=== PATIENT | male | born 1955 | race Caucasian/White ===

== ENCOUNTER → 2018-01-01 | Outpatient (CLI) | payer MEDICARE, MEDICAID ==
[~2018-01-01] MED LIST: ALBU2TAB38 PO; ALBU8.5H2 IH; ASPI-892 PO; CETI10TA57 PO; CYCL10TA9 PO; DOXE25CA2 PO; GABA300C PO; GLIM4TAB PO; HYDR-3729 PO; LIRA0.6P SQ; LVT.05T PO; METF-380 PO; OMEP20CA6 PO; PIOG45TA PO; SIMV40TA2 PO; ZOLP10TA5 PO
== END ==
LOC: CARD 13:42
PROVIDERS: ATTEND Physician Assistant
DX: I25.10 Atherosclerotic heart disease of native coronary artery without angina pectoris (principal); R07.9 Chest pain, unspecified; E11.9 Type 2 diabetes mellitus without complications; E78.5 Hyperlipidemia, unspecified
CPT/HCPCS: 93306

== ENCOUNTER 2020-01-11 13:28 | Emergency (ER) | payer MEDICARE, MEDICAID ==
[~2020-01-11] VITALS: Ht 187 cm; Wt 134.0 kg
[2020-01-11 13:40] VITALS: BP 153/102
--- NOTE | 2020-01-11 14:01 | ED General ---
General Chief Complaint: Cardiac/General Problems Stated Complaint: ELEV BP Nursing Triage Note: ARRIVED VIA AMB TO ROOM 06 WITH COMPLAINTS OF HIGH BP X2 WEEKS. DENIES ANY SYMPTOMS INCLUDING CP ET JUST WANTS TO KNOW IF WE THINK IT IS HIGH ALSO. Nursing Sepsis Screen: No Definite Risk History of Present Illness Date Seen by Provider: Jan 11, 2020 Time Seen by Provider: 13:45 Initial Comments 64 year old male presents for hypertension. He checks his b/p multiple times a day at home and it has been labile. He was recently instructed to increase his losarten to 150 mg, but he has continued to take 100 mg. He denies headache, vision changes, weakness, nausea or vomiting. Timing/Duration: Intermittent Associated Systoms: Denies Symptoms Allergies and Home Medications Allergies Uncoded Allergies: TAPE (Adverse Reaction, Mild, 08/12/10) Home Medications Albuterol 8.5 Gm Hfa.aer.ad, 2 PUFF IH QID PRN for SHORTNESS OF BREATH, (Reported) Aspirin 81 Mg Tabec, 81 MG PO DAILY, (Reported) Gabapentin 300 Mg Capsule, 300 MG PO BID, (Reported) Glimepiride 4 Mg Tablet, 4 MG PO DAILY, (Reported) Hydrocodone/Acetaminophen 1 Each Tablet, 1 EACH PO Q4H PRN for PAIN Prescribed by: MARCOS MCMILLAN on 10/09/14 0909 Levothyroxine Sodium 50 Mcg Tablet, 50 MCG PO DAILY, (Reported) Liraglutide 0.6 Mg/0.1 Ml Pen.injctr, 1.8 MG SQ DAILY, (Reported) Metformin Hcl 1,000 Mg Tablet, 1,000 MG PO BID WITH MEALS, (Reported) Omeprazole 20 Mg Capsule.dr, 20 MG PO DAILY, (Reported) Simvastatin 40 Mg Tablet, 40 MG PO HS, (Reported) Zolpidem Tartrate 10 Mg Tablet, 10 MG PO HS, (Reported) Patient Home Medication List Home Medication List Reviewed: Yes Review of Systems Review of Systems Constitutional: no symptoms reported, see HPI EENTM: see HPI, no symptoms reported Cardiovascular: no symptoms reported, see HPI; No chest pain Gastrointestinal: no symptoms reported, see HPI Musculoskeletal: no symptoms reported, see HPI Psychiatric/Neurological: No Symptoms Reported, See HPI All Other Systems Reviewed Negative Unless Noted: Yes Past Eggohtu-Whqzwz-Wysnjm Hx Past Med/Social Hx: Reviewed Nursing Past Med/Soc Hx Patient Social History Alcohol Use: Denies Use Recreational Drug Use: No Smoking Status: Never a Smoker Recent Foreign Travel: No Contact w/Someone Who Travel: No Recent Infectious Disease Expo: No Immunizations Up To Date Date of Pneumonia Vaccine: Aug 20, 2011 Past Medical History Surgeries: Yes Appendectomy, Gallbladder, Orthopedic Respiratory: Yes Sleep Apnea Cardiac: No Hypertension Neurological: No Genitourinary: No Gastrointestinal: Yes Gastroesophageal Reflux, Gall Bladder Disease Musculoskeletal: Yes Arthritis Endocrine: Yes Hypothyroidsim, Diabetes, Non-Insulin dep Cancer: No Psychosocial: Yes Anxiety Integumentary: No Blood Disorders: No Physical Exam Vital Signs Vital Signs - First Documented 01/11/20 13:40 Temp 36.5 Pulse 93 Resp 16 B/P (MAP) 153/102 (119) Pulse Ox 96 O2 Delivery Room Air Capillary Refill : Less Than 3 Seconds Height, Weight, BMI Height: 6'2.00" Weight: 284lbs. oz. 128.183992tv; 38.00 BMI Method:Stated General Appearance: No Apparent Distress Eyes: Bilateral Eye Normal Inspection, Bilateral Eye PERRL, Bilateral Eye EOMI HEENT: PERRL/EOMI, TMs Normal, Normal ENT Inspection, Pharynx Normal Neck: Full Range of Motion, Normal Inspection, Non Tender, Supple Respiratory: Chest Non Tender, Lungs Clear, Normal Breath Sounds Cardiovascular: Regular Rate, Rhythm, No Edema, No Murmur, Normal Peripheral Pulses Gastrointestinal: Normal Bowel Sounds, Non Tender, Soft Extremity: Normal Capillary Refill, Normal Inspection, Normal Range of Motion, Non Tender, No Calf Tenderness, No Pedal Edema Neurologic/Psychiatric: Alert, Oriented x3, No Motor/Sensory Deficits, Normal Mood/Affect Skin: Normal Color, Warm/Dry Progress/Results/Core Measures Suspected Sepsis Recent Fever Within 48 Hours: No Infection Criteria Present: None New/Unexplained Altered Menta: No Sepsis Screen: No Definite Risk SIRS Temperature: Pulse: 93 Respiratory Rate: 16 Blood Pressure 153 /102 Mean: 119 Results/Orders Vital Signs/I&O 01/11/20 13:40 Temp 36.5 Pulse 93 Resp 16 B/P (MAP) 153/102 (119) Pulse Ox 96 O2 Delivery Room Air Capillary Refill : Less Than 3 Seconds Blood Pressure Mean: 119 Progress Note : Time: 13:45 Progress Note patient seen and evaluated, B/P 150/102. 1330 B/P 120/98. Discussed with patient, recommended checking his b/p twice daily. It would be ok to take the Losarten 150 mg. Discharge instructions and return precautions reviewed. Departure Impression Primary Impression: Hypertension Qualified Codes: I10 - Essential (primary) hypertension Disposition: HOME, SELF-CARE Condition: Improved Departure-Patient Inst. Decision time for Depature: 13:45 Referrals: LUIS DANIEL WILEY MD (PCP/Family) Primary Care Physician Patient Instructions: High Blood Pressure (DC) Add. Discharge Instructions: Continue to take your blood pressure medicine, check your blood pressure twice daily and document it. Take Losartin 150 mg once daily. Follow up with your primary care provider. Return to the emergency dept for new, urgent health care providers. All discharge instructions reviewed with patient and/or family. Voiced understanding. STEPH MCEKON Jan 11, 2020 14:00
== END 2020-01-11 14:06 | disposition home or self-care (01) ==
LOC: EDUNIT# 13:28 → ER 13:29
DX: I10 Essential (primary) hypertension (principal); E03.9 Hypothyroidism, unspecified; G47.30 Sleep apnea, unspecified; E11.9 Type 2 diabetes mellitus without complications; Z79.84 Long term (current) use of oral hypoglycemic drugs; Z79.890 Hormone replacement therapy; Z91.048 Other nonmedicinal substance allergy status; Z79.899 Other long term (current) drug therapy
CPT/HCPCS: 99283

== ENCOUNTER 2020-08-13 05:50 | Outpatient (CLI) | payer MEDICARE, MEDICAID ==
[~2020-08-13] VITALS: Ht 188 cm; Wt 125.5 kg
[2020-08-16] MEDS ORDERED: CANA300T PO (14:46)
[2020-08-16] MEDS ORDERED: OMEP40CA27 PO (14:46)
[2020-08-16] MEDS ORDERED: CYCL10TA9 PO (14:46)
[2020-08-16] MEDS ORDERED: GLIM4TAB5 PO (14:46)
[2020-08-16] MEDS ORDERED: LIRA0.6P3 SQ (14:46)
[2020-08-16] MEDS ORDERED: TRAZ-227 PO (14:46)
[2020-08-16] MEDS ORDERED: GABA-490 PO (14:46)
[2020-08-16] MEDS ORDERED: METF-845 PO (14:46)
[2020-08-16] MEDS ORDERED: INSU100I29 SQ (14:46)
[2020-08-16] MEDS ORDERED: LOSA100T57 PO (14:46)
[2020-08-17] MEDS ORDERED: MUPI22OI2 TP (04:17)
== END 2020-08-16 14:50 | disposition home or self-care (01) ==
LOC: PREOP 05:50
PROVIDERS: ATTEND Specialist
DX: Z01.818 Encounter for other preprocedural examination (principal)

== ENCOUNTER 2020-08-17 03:57 | Emergency (ER) | payer MEDICARE, MEDICAID ==
[~2020-08-17 03:57] MED LIST changes: +CANA300T PO; +GABA-490 PO; +GLIM4TAB5 PO; +INSU100I29 SQ; +LIRA0.6P3 SQ; +LOSA100T57 PO; +METF-845 PO; +OMEP40CA6 PO; +TRAZ-227 PO
[2020-08-17 04:10] VITALS: BP 133/85
[2020-08-17] MEDS ORDERED: MUPI22OI2 TP ×2 (04:17)
--- NOTE | 2020-08-17 04:17 | ED GU-Male ---
General Stated Complaint: PENIS ISSUES Source: patient History of Present Illness Date Seen by Provider: Aug 17, 2020 Time Seen by Provider: 04:10 Initial Comments PT ARRIVES VIA POV FROM HOME PT STATES THAT AROUND 2129 TONIGHT, AFTER HAVING INTERCOURSE, HE WAS UNABLE TO REPLACE FORESKIN HAS BEEN ABLE TO URINATE SOME, BUT WITH DIFFICULTY PT STATES IT HAS HAPPENED BEFORE, BUT NOT THIS BAD AND NOT FOR THIS LONG PT IS UNCIRCUMCISED. Allergies and Home Medications Allergies Uncoded Allergies: TAPE (Adverse Reaction, Mild, 08/12/10) Home Medications Canagliflozin 300 Mg Tablet, 300 MG PO DAILY, (Reported) Cyclobenzaprine HCl 10 Mg Tablet, 10 MG PO BID, (Reported) Gabapentin 400 Mg Capsule, 400 MG PO TID, (Reported) Glimepiride 4 Mg Tablet, 4 MG PO BID, (Reported) Insulin Detemir 100 Unit/1 Ml Insuln.pen, 30 UNIT SQ BID, (Reported) Liraglutide 0.6 Mg/0.1 Ml Pen.injctr, 1.8 MG SQ DAILY, (Reported) Losartan Potassium 100 Mg Tablet, 100 MG PO DAILY, (Reported) Metformin HCl 500 Mg [id number], 1,000 MG PO BID, (Reported) Mupirocin 22 Gm Oint...g., 22 GM TP BID Prescribed by: ANANDA HUANG on 08/17/20 0417 Omeprazole 40 Mg Capsule.dr, 40 MG PO DAILY, (Reported) Trazodone HCl 100 Mg Tablet, 100 MG PO HS, (Reported) Patient Home Medication List Home Medication List Reviewed: Yes Review of Systems Review of Systems Constitutional: no symptoms reported Genitourinary: see HPI Past Jirreiy-Rrxhhg-Ddmkjo Hx Past Med/Social Hx: Reviewed and Corrections made Immunizations Up To Date Date of Pneumonia Vaccine: Aug 20, 2011 Past Medical History Surgeries: Yes Appendectomy, Gallbladder, Orthopedic Respiratory: Yes Sleep Apnea Cardiac: Yes Hypertension Neurological: No Genitourinary: No Gastrointestinal: Yes Gastroesophageal Reflux, Gall Bladder Disease Musculoskeletal: Yes Arthritis Endocrine: Yes Hypothyroidsim, Diabetes, Non-Insulin dep Cancer: No Psychosocial: Yes Anxiety Integumentary: No Blood Disorders: No Physical Exam Vital Signs Vital Signs - First Documented 08/17/20 04:10 Temp 36.4 Pulse 92 Resp 16 B/P (MAP) 133/85 (101) O2 Delivery Room Air Capillary Refill : Height, Weight, BMI Height: 6'2.00" Weight: 284lbs. oz. 128.145192yf; 38.00 BMI Method:Stated General Appearance: WD/WN, no apparent distress Male: other (RETRACTED FORESKIN, HEAD OF PENIS VERY ERYTHEMATOUS AND MILD TO MODERATE SWELLING. NO SIGNS OF NECROSIS OR CYANOSIS) Progress/Results/Core Measures Suspected Sepsis SIRS Temperature: Pulse: Respiratory Rate: Blood Pressure / Mean: Results/Orders Vital Signs/I&O 08/17/20 04:10 Temp 36.4 Pulse 92 Resp 16 B/P (MAP) 133/85 (101) O2 Delivery Room Air Capillary Refill : Progress Note : Progress Note EASILY REPLACED RETRACTED FORESKIN WITH IMMEDIATE RELIEF OF DISCOMFORT Departure Impression Primary Impression: Paraphimosis Disposition: 01 HOME, SELF-CARE Condition: Improved Departure-Patient Inst. Decision time for Depature: 04:15 Referrals: JOSE HAYES DO (PCP/Family) Primary Care Physician HANNA TURNER MD Patient Instructions: Care of the Uncircumcised Penis in Babies and Children Add. Discharge Instructions: APPLY ANTIBIOTIC OINTMENT TO HEAD OF PENIS TWICE A DAY TYLENOL AND MOTRIN NEEDED FOR PAIN FOLLOW UP WITH DR. TURNER, UROLOGIST, FOR FURTHER CARE Scripts Mupirocin (Mupirocin) 22 Gm Oint...g. 22 GM TP BID, #1 TUBE Prov: ANANDA HUANG DO 08/17/20 ANANDA HUANG DO Aug 17, 2020 04:17
== END 2020-08-17 04:20 | disposition home or self-care (01) ==
LOC: EDUNIT# 03:57 → ER 04:01
DX: N47.2 Paraphimosis (principal); I10 Essential (primary) hypertension; K21.9 Gastro-esophageal reflux disease without esophagitis; F41.9 Anxiety disorder, unspecified; E11.9 Type 2 diabetes mellitus without complications; Z79.899 Other long term (current) drug therapy; Z79.84 Long term (current) use of oral hypoglycemic drugs
CPT/HCPCS: 99282

== ENCOUNTER 2020-08-20 08:51 | Day surgery (SDC) | payer MEDICARE, MEDICAID ==
[~2020-08-20] VITALS: Ht 188 cm; Wt 125.5 kg
[~2020-08-20 08:51] MED LIST changes: +MUPI22OI2 TP
[2020-08-20] MEDS ORDERED: POVIDONE (BETADINE) OPHTH SOLN 5% 30 ML OP ONE (09:30)
[2020-08-20] MEDS ORDERED: LIDOCAINE PF 1% 2 ML VIAL IR PRN (09:30)
[2020-08-20] MEDS: TETRACAINE 0.5% OPHTH SOLN 4 ML BTL (SINGLE DOSE ONLY) OU PRN ×4 (09:30→09:47)
[2020-08-20] MEDS ORDERED: MOXIFLOXACIN OPHTH SOLN 5 MG/ML 0.3 ML SYRINGE OP ONE (09:30)
[2020-08-20] MEDS ORDERED: TIMOLOL MALEATE 0.5% 5 ML (TIMOPTIC) BTL OU PRN (09:30)
[2020-08-20] MEDS: TROPICAMIDE 1% OPH SOLN (MYDRIACYL) 15 ML BTL OP SCH ×3 (09:37→09:47)
[2020-08-20] MEDS: PHENYLEPHRINE 10% OPHTH (NEO-SYN) 5 ML BTL OU SCH ×3 (09:37→09:47)
[2020-08-20 09:39] VITALS: BP 115/70
[2020-08-20] MEDS ORDERED: MIDAZOLAM 2 MG/2 ML (VERSED) VIAL ONE (09:42)
--- NOTE | 2020-08-20 10:16 | Ophthalmologist Pre-Op Note ---
Pre-Operative Progress Note H&P Reviewed The H&P was reviewed, patient examined and no changes noted. Date H&P Reviewed: Aug 20, 2020 Time H&P Reviewed: 10:16 Pre-Op Dx Cataract, Left Eye ELBA SANTOS MD Aug 20, 2020 10:16
[2020-08-20] MEDS ORDERED: acetaZOLAMIDE ER 500 MG CAP (DIAMOX SEQUELS) PO ONE (10:30)
--- NOTE | 2020-08-20 10:47 | Ophthalmology Operative Report ---
Cataract removal/placement IOL PREOPERATIVE DIAGNOSIS: Cataract Left Eye POSTOPERATIVE DIAGNOSIS: Cataract Left Eye PROCEDURE: Cataract removal and placement of posterior chamber implant, left eye SURGEON: Nathanael Santos ANESTHESIA: Topical with sedation COMPLICATIONS: None ESTIMATED BLOOD LOSS: Minimal DESCRIPTION OF PROCEDURE: After proper informed consent was obtained, the patient, a 64 male, was taken to the Operating Room and the left eye was anesthetized with tetracaine. The left eye was then prepped and draped in the usual manner. A wire lid speculum was placed. A paracentesis was made at the left hand position. Preservative free lidocaine was injected into the anterior chamber followed by viscoelastic. A clear corneal incision was made in the temporal position. A capsulorrhexis was preformed and the central nuclear and cortical material were removed. The posterior capsule was polished and an Ej 4.0 [id number] was placed into the capsular bag. The residual viscoelastic was aspirated and balanced saline solution was injected into the anterior chamber. Moxifloxacin was injected into the anterior chamber. The wound was checked and found to be water tight. The patient tolerated the procedure well without complications. NATHANAEL SANTOS MD Aug 20, 2020 10:47
[2020-08-20 10:54] VITALS: BP 118/60
--- NOTE | 2020-08-20 15:59 | Anesthesia-General Post-Op ---
MAC Patient Condition Mental Status/LOC: Same as Preop Cardiovascular: Satisfactory Nausea/Vomiting: Absent Respiratory: Satisfactory Pain: Controlled Complications: Absent Post Op Complications Complications None Follow Up Care/Instructions Patient Instructions None needed. Anesthesiology Discharge Order Discharge Order Patient was seen after the procedure and he was doing well, no complaints, stable vital signs, no apparent adverse anesthesia problems. AC APODACA DO Aug 20, 2020 15:59
== END 2020-08-20 10:56 ==
LOC: SDC 08:51
PROVIDERS: ATTEND Specialist
DX: E11.36 Type 2 diabetes mellitus with diabetic cataract (principal); H25.12 Age-related nuclear cataract, left eye; I10 Essential (primary) hypertension; M19.90 Unspecified osteoarthritis, unspecified site; E78.5 Hyperlipidemia, unspecified; G47.00 Insomnia, unspecified; E78.00 Pure hypercholesterolemia, unspecified; F41.9 Anxiety disorder, unspecified; Z79.84 Long term (current) use of oral hypoglycemic drugs; Z79.899 Other long term (current) drug therapy; Z83.3 Family history of diabetes mellitus
CPT/HCPCS: 66984; 82947; V2632

== ENCOUNTER 2020-08-30 05:40 | Outpatient (CLI) | payer MEDICARE, MEDICAID ==
[~2020-08-30] VITALS: Ht 188 cm; Wt 125.5 kg
== END 2020-08-30 13:16 | disposition home or self-care (01) ==
LOC: PREOP 05:40
PROVIDERS: ATTEND Specialist
DX: Z01.818 Encounter for other preprocedural examination (principal)

== ENCOUNTER 2020-09-03 08:25 | Day surgery (SDC) | payer MEDICARE, MEDICAID ==
[~2020-09-03] VITALS: Ht 188 cm; Wt 125.5 kg
[2020-09-03] MEDS ORDERED: TIMOLOL MALEATE 0.5% 5 ML (TIMOPTIC) BTL OU PRN (08:30)
[2020-09-03] MEDS ORDERED: POVIDONE (BETADINE) OPHTH SOLN 5% 30 ML OP ONE (08:30)
[2020-09-03] MEDS ORDERED: MOXIFLOXACIN OPHTH SOLN 5 MG/ML 0.3 ML SYRINGE OP ONE (08:30)
[2020-09-03] MEDS ORDERED: LIDOCAINE PF 1% 2 ML VIAL IR PRN (08:30)
[2020-09-03 08:36] VITALS: BP 103/83
[2020-09-03] MEDS: TETRACAINE 0.5% OPHTH SOLN 4 ML BTL (SINGLE DOSE ONLY) OU PRN ×4 (08:37→09:02)
[2020-09-03] MEDS: TROPICAMIDE 1% OPH SOLN (MYDRIACYL) 15 ML BTL OP SCH ×3 (08:47→09:02)
[2020-09-03] MEDS: PHENYLEPHRINE 10% OPHTH (NEO-SYN) 5 ML BTL OU SCH ×3 (08:47→09:02)
[2020-09-03] MEDS ORDERED: MIDAZOLAM 2 MG/2 ML (VERSED) VIAL ONE (09:16)
--- NOTE | 2020-09-03 09:36 | Ophthalmologist Pre-Op Note ---
Pre-Operative Progress Note H&P Reviewed The H&P was reviewed, patient examined and no changes noted. Date H&P Reviewed: Sep 03, 2020 Time H&P Reviewed: 09:36 Pre-Op Dx Cataract, Right Eye ELBA SANTOS MD Sep 03, 2020 09:36
--- NOTE | 2020-09-03 09:59 | Ophthalmology Operative Report ---
Cataract removal/placement IOL PREOPERATIVE DIAGNOSIS: Cataract Right Eye POSTOPERATIVE DIAGNOSIS: Cataract Right Eye PROCEDURE: Cataract removal and placement of posterior chamber implant, right eye SURGEON: Nathanael Santos ANESTHESIA: Topical with sedation COMPLICATIONS: None ESTIMATED BLOOD LOSS: Minimal DESCRIPTION OF PROCEDURE: After proper informed consent was obtained, the patient, a 64 male, was taken to the Operating Room and the right eye was anesthetized with tetracaine. The right eye was then prepped and draped in the usual manner. A wire lid speculum was placed. A paracentesis was made at the left hand position. Preservative free lidocaine was injected into the anterior chamber followed by viscoelastic. A clear corneal incision was made in the temporal position. A capsulorrhexis was preformed and the central nuclear and cortical material were removed. The posterior capsule was polished and Ej 6.5 [id number] IOL was placed into the capsular bag. The residual viscoelastic was aspirated and balanced saline solution was injected into the anterior chamber. Moxifloxacin was injected into the anterior chamber. The wound was checked and found to be water tight. The patient tolerated the procedure well without complications. NATHANAEL SANTOS MD Sep 03, 2020 09:59
[2020-09-03] MEDS ORDERED: acetaZOLAMIDE ER 500 MG CAP (DIAMOX SEQUELS) PO ONE (10:00)
[2020-09-03 10:10] VITALS: BP 107/70
--- NOTE | 2020-09-03 12:54 | Anesthesia-General Post-Op ---
MAC Patient Condition Mental Status/LOC: Same as Preop Cardiovascular: Satisfactory Nausea/Vomiting: Absent Respiratory: Satisfactory Pain: Controlled Complications: Absent Post Op Complications Complications None Follow Up Care/Instructions Patient Instructions None needed. Anesthesiology Discharge Order Discharge Order Patient is doing well, no complaints, stable vital signs, no apparent adverse anesthesia problems. No complications reported per nursing. CHRISTY GUZMAN CRNA Sep 03, 2020 12:54
== END 2020-09-03 10:10 | disposition home or self-care (01) ==
LOC: SDC 08:25
PROVIDERS: ATTEND Specialist
DX: H25.11 Age-related nuclear cataract, right eye (principal); I10 Essential (primary) hypertension; E11.9 Type 2 diabetes mellitus without complications; K21.9 Gastro-esophageal reflux disease without esophagitis; F41.9 Anxiety disorder, unspecified; E78.00 Pure hypercholesterolemia, unspecified; G47.00 Insomnia, unspecified; M19.90 Unspecified osteoarthritis, unspecified site; Z79.84 Long term (current) use of oral hypoglycemic drugs; Z79.899 Other long term (current) drug therapy; Z91.048 Other nonmedicinal substance allergy status
CPT/HCPCS: 66984; 82947; V2632

== ENCOUNTER 2021-08-10 14:36 | Emergency (ER) | payer MEDICARE, MEDICAID ==
[~2021-08-10] VITALS: Ht 187.9 cm; Wt 137.4 kg
[~2021-08-10 14:36] MED LIST changes: +CYCL10TA25 PO
[2021-08-10 14:40] VITALS: BP 153/99
--- NOTE | 2021-08-10 15:02 | ED Upper Extremity ---
General Chief Complaint: Upper Extremity Stated Complaint: L ELBOW PAIN Nursing Triage Note: YULIA STATES HE HAS HAD INCREASING PAIN IN HIS LEFT ELBOW FOR THE LAST SEVERAL MONTHS. VERBALIZES HE TAKES TYLENOL AT HOME FOR THIS INTERMITTANT PAIN HOWEVER THE PAIN WILL SOMETIMES WAKE HIM UP AT NIGHT AND HE WANTS TO FIGURE OUT WHAT IS WRONG WITH IT. Source: patient Exam Limitations: no limitations History of Present Illness Date Seen by Provider: Aug 10, 2021 Time Seen by Provider: 14:50 Initial Comments This is a well-appearing 65-year-old male who presented to the ER for left elbow pain x5 months. States that he has had persistent pain over the past 5 months, has seen his primary care provider and they "did not do an x-ray or anything". He has been taking Tylenol which helps a little bit. However he has been having increasing pain whenever he carries heavy objects and it has been waking him up at night. He denies any fever, chills, night sweats, rashes, no injuries or falls. Denies any numbness, tingling. Pain is localized to his elbow joint and does not radiate. Has full ROM. Allergies and Home Medications Allergies Uncoded Allergies: TAPE (Adverse Reaction, Mild, 08/12/10) Patient Home Medication List Home Medication List Reviewed: Yes Canagliflozin (Invokana) 300 Mg Tablet, 300 MG PO DAILY, (Reported) Entered as Reported by: ASHKAN DURAN on 08/16/20 144 Cyclobenzaprine HCl (Cyclobenzaprine HCl) 10 Mg Tablet, 10 MG PO BID, (Reported) Entered as Reported by: ASHKAN DURAN on 08/16/20 144 Gabapentin (Gabapentin) 400 Mg Capsule, 400 MG PO TID, (Reported) Entered as Reported by: ASHKAN DURAN on 08/16/20 144 Glimepiride (Glimepiride) 4 Mg Tablet, 4 MG PO BID, (Reported) Entered as Reported by: ASHKAN DURAN on 08/16/20 144 Insulin Detemir (Levemir Flextouch) 100 Unit/1 Ml Insuln.pen, 30 UNIT SQ BID, (Reported) Entered as Reported by: ASHKAN DURAN on 08/16/20 144 Liraglutide (Victoza 3-Javier) 0.6 Mg/0.1 Ml Pen.injctr, 1.8 MG SQ DAILY, (Reported) Entered as Reported by: ASHKAN DURAN on 08/16/20 144 Losartan Potassium (Losartan Potassium) 100 Mg Tablet, 100 MG PO DAILY, (Reported) Entered as Reported by: ASHKAN DURAN on 08/16/20 144 Metformin HCl (Metformin HCl ER) 500 Mg [id number], 1,000 MG PO BID, (Reported) Entered as Reported by: ASHKAN DURAN on 08/16/20 1446 Mupirocin (Mupirocin) 22 Gm Oint...g., 22 GM TP BID Prescribed by: ANANDA HUANG on 08/17/20 041 Omeprazole (Omeprazole) 40 Mg Capsule.dr, 40 MG PO DAILY, (Reported) Entered as Reported by: ASHKAN DURAN on 08/16/20 144 Trazodone HCl (Trazodone HCl) 100 Mg Tablet, 100 MG PO HS, (Reported) Entered as Reported by: ASHKAN DURAN on 08/16/20 1446 Review of Systems Constitutional: no symptoms reported EENTM: no symptoms reported Respiratory: no symptoms reported Cardiovascular: no symptoms reported Genitourinary: no symptoms reported Skin: no symptoms reported Psychiatric/Neurological: No Symptoms Reported Past Kdzcpzr-Ubdxvm-Poquwb Hx Patient Social History Tobacco Use?: No Use of E-Cig and/or Vaping dev: No Substance use?: No Alcohol Use?: No Pt feels they are or have been: No Immunizations Up To Date Influenza Vaccine Up-to-Date: Yes; Up-to-Date First/Initial COVID19 Vaccinat: YES 2019 Second COVID19 Vaccination [place]: YES 2020 COVID19 Vaccine [place] Hand: MODERNA Past Medical History Surgeries: Yes Appendectomy, Gallbladder, Orthopedic Respiratory: No Sleep Apnea Cardiac: Yes Hypertension Neurological: No Genitourinary: No Gastrointestinal: Yes Gastroesophageal Reflux, Gall Bladder Disease Musculoskeletal: Yes Arthritis Endocrine: Yes Hypothyroidsim, Diabetes, Non-Insulin dep Cancer: No Psychosocial: Yes Anxiety Integumentary: No Blood Disorders: No Physical Exam Vital Signs Vital Signs - First Documented 08/10/21 14:40 Temp 35.9 Pulse 80 Resp 18 B/P (MAP) 153/99 (117) Pulse Ox 97 O2 Delivery Room Air Capillary Refill : Less Than 3 Seconds Height, Weight, BMI Height: 6'2.00" Weight: 284lbs. oz. 128.916608yg; 38.00 BMI Method:Stated General Appearance: WD/WN, no apparent distress HEENT: PERRL/EOMI, normal ENT inspection, TMs normal, pharynx normal Neck: full range of motion, normal inspection Cardiovascular: regular rate, rhythm, no murmur Respiratory: lungs clear, normal breath sounds, no respiratory distress Shoulder: normal inspection, non-tender, no evidence of injury, normal ROM Wrist: Yes normal inspection, Yes non-tender, Yes no evidence of injury, Yes normal ROM Hand: normal inspection, no evidence of injury, normal ROM, Bilateral Neurologic/Tendon: normal sensation, normal motor functions, normal tendon functions Neurologic/Psychiatric: no motor/sensory deficits, alert, normal mood/affect, oriented x 3 Skin: normal color, warm/dry Left elbow: No erythema, swelling, deformities. Progress/Results/Core Measures Results/Orders My Orders Orders - VIRGEN GOLDSTEIN APRN Elbow, Left, 3 Views (08/10/21 14:57) Vital Signs/I&O 08/10/21 08/10/21 14:40 15:35 Temp 35.9 Pulse 80 Resp 18 B/P (MAP) 153/99 (117) Pulse Ox 97 O2 Delivery Room Air Room Air Blood Pressure Mean: 117 Progress Progress Note : Progress Note Patient examined and in no acute distress. He does not have any marked swelling compared to the other elbow. No erythema, streaking appreciated. We will go ahead and obtain x-ray as this is his chief concern today. He does have full range of motion. Good neurovascular exam distal to elbow. Images negative for fractures or joint effusion. Reviewed findings with patient. Discharge POC reviewed and he is agreeable with plan. Diagnostic Imaging Diagonstic Imaging: Xray Plain Films/CT/US/NM/MRI: elbow Comments [facility] [place], [place] NAME: FAY CARTER [facility] REC#: [id number] PT STATUS: REG ER : 1955 PHYSICIAN: VIRGEN GOLDSTEIN APRN ADMIT DATE: 08/10/21/ER Draft Date of Exam:08/10/21 ELBOW, LEFT, 3 VIEWS INDICATION: Increasing elbow pain of several months duration. FINDINGS: There is no fracture, dislocation, bony destruction, or acute periosteal reaction. There are arthritic changes to the elbow. No definite joint effusion. No opaque loose body. IMPRESSION: Arthritis. No fracture or acute bony pathology however identified. Dictated on workstation # [id number] Dict: 08/10/21 1514 Trans: 08/10/21 1521 [id number] Interpreted by: MAIKEL PLASENCIA Electronically signed by: Departure Impression Primary Impression: Arthritis of elbow, left Disposition: 01 HOME, SELF-CARE Condition: Stable Departure-Patient Inst. Decision time for Depature: 15:25 Referrals: JOSE HAYES DO (PCP/Family) Primary Care Physician Patient Instructions: Osteoarthritis Add. Discharge Instructions: Plan: 1. May use hot or cold compresses for comfort. 2. Take Tylenol or Ibuprofen as needed for pain. 3. May use elbow brace for comfort. 4. Follow up with your doctor as needed. 5. Return for any new, concerning, or worsening symptoms. All discharge instructions reviewed with patient and/or family. Voiced understanding. VIRGEN GOLDSTEIN SENIOR SQL SERVER DATABASE DEVELOPER Aug 10, 2021 15:02
--- NOTE | 2021-08-10 15:22 | Diagnostic Imaging Report ---
INDICATION: Increasing elbow pain of several months duration. FINDINGS: There is no fracture, dislocation, bony destruction, or acute periosteal reaction. There are arthritic changes to the elbow. No definite joint effusion. No opaque loose body. IMPRESSION: Arthritis. No fracture or acute bony pathology however identified. Dictated by: Dictated on workstation # [id number]
== END 2021-08-10 15:35 | disposition home or self-care (01) ==
LOC: EDUNIT# 14:36 → ER 14:38
DX: M19.022 Primary osteoarthritis, left elbow (principal)
CPT/HCPCS: 73080

== ENCOUNTER 2021-08-24 05:35 | Outpatient (CLI) | payer MEDICARE, MEDICAID ==
[~2021-08-24] VITALS: Ht 188 cm; Wt 137.4 kg
[2021-08-24] MEDS ORDERED: CETI10TA17 PO (14:51)
[2021-08-24] MEDS ORDERED: FLUT16SP22 NS (14:51)
[2021-08-24] MEDS ORDERED: MELO15TA39 PO (14:51)
[2021-08-24] MEDS ORDERED: EMPA25TA PO (14:51)
[2021-08-24] MEDS ORDERED: ALBU8.5H9 IH (14:51)
[2021-08-24] MEDS ORDERED: DOXE10CA29 PO (14:51)
[2021-08-24] MEDS ORDERED: ASPI-999 PO (14:51)
[2021-08-24] MEDS ORDERED: SIMV20TA26 PO (14:51)
== END 2021-08-24 14:58 | disposition home or self-care (01) ==
LOC: PREOP 05:35
PROVIDERS: ATTEND Surgery
DX: Z01.818 Encounter for other preprocedural examination (principal)

== ENCOUNTER 2021-09-06 08:41 | Day surgery (SDC) | payer MEDICARE, MEDICAID ==
[~2021-09-06] VITALS: Ht 188 cm; Wt 137.4 kg
[~2021-09-06 08:41] MED LIST changes: +ALBU8.5H9 IH; +ASPI-999 PO; +CETI10TA17 PO; +DOXE10CA29 PO; +EMPA25TA PO; +FLUT16SP22 NS; +MELO15TA39 PO; +SIMV20TA26 PO
[2021-09-06] MEDS ORDERED: LACTATED RINGERS 1,000 ML IV STA (08:47)
[2021-09-06 09:01] VITALS: BP 141/100
--- NOTE | 2021-09-06 09:16 | Progress Note-Pre Operative ---
Pre-Operative Progress Note H&P Reviewed The H&P was reviewed, patient examined and no changes noted. Date Seen by Provider: Sep 06, 2021 Time Seen by Provider: 09:15 Date H&P Reviewed: Sep 06, 2021 Time H&P Reviewed: 09:16 Pre-Operative Diagnosis: screening colonoscopy PAM STOCKTON DO Sep 06, 2021 09:16
[2021-09-06] MEDS ORDERED: PROPOFOL INJECTION 50 ML IV ONE ×2 (10:41→10:52)
[2021-09-06] MEDS ORDERED: MIDAZOLAM 2 MG/2 ML (VERSED) VIAL ONE (10:41)
[2021-09-06 11:05] VITALS: BP 148/84
--- NOTE | 2021-09-06 11:09 | Progress Note-Post Operative ---
Post-Operative Progess Note Surgeon (s)/Decontaminator (s) Surgeon PAM STOCKTON DO Decontaminator: na Pre-Operative Diagnosis screening colonoscopy Post-Operative Diagnosis normal colon Procedure & Operative Findings Date of Procedure 09/06/21 Procedure Performed/Findings colonoscopy Anesthesia Type per edge grinder machine Estimated Blood Loss Estimated blood loss (mL): none Specimens/Packing Specimens Removed na PAM STOCKTON DO Sep 06, 2021 11:09
[2021-09-06 11:10] VITALS: BP 148/84
--- NOTE | 2021-09-06 11:12 | Discharge Inst-Simple/Standard ---
Discharge Inst-Standard Patient Instructions/Follow Up Plan of Care/Instructions/FU: repeat colonoscopy 10 years, unless family history of colon cancer or personal history of polyps which would be 5 years. Any issues before that be seen at that time. Activity as Tolerated: Yes Discharge Diet: Regular Diet PAM STOCKTON DO Sep 06, 2021 11:12
[2021-09-06 11:40] VITALS: BP 132/94
--- NOTE | 2021-09-06 13:07 | Anesthesia-General Post-Op ---
MAC Patient Condition Mental Status/LOC: Same as Preop Cardiovascular: Satisfactory Nausea/Vomiting: Absent Respiratory: Satisfactory Pain: Controlled Complications: Absent Post Op Complications Complications None Follow Up Care/Instructions Patient Instructions None needed. Anesthesiology Discharge Order Discharge Order Patient is doing well, no complaints, stable vital signs, no apparent adverse anesthesia problems. No complications reported per nursing. JANETTE MORRIS CRNA Sep 06, 2021 13:07
--- NOTE | 2021-09-06 17:22 | OPERATIVE REPORT ---
DATE OF SERVICE: 09/06/2021 PREOPERATIVE DIAGNOSIS: Screening colonoscopy. POSTOPERATIVE DIAGNOSIS: Normal colon. PROCEDURE PERFORMED: Colonoscopy. SURGEON: Pam Bustos DO. ANESTHESIA: Per TAX COLLECTOR. ESTIMATED BLOOD LOSS: None. COMPLICATIONS: None. INDICATIONS FOR PROCEDURE: The patient is a 65-year-old male needing screening colonoscopy. He understands the risks and benefits of the procedure and wishes to proceed. Consent was signed in the chart. DESCRIPTION OF PROCEDURE: The patient was taken to the endoscopy suite and placed in a left lateral recumbent position. Timeout was performed. Digital rectal exam was performed. There were no palpable polyps, masses or ulcerations. Scope was inserted in the rectum and advanced all the way to cecum with minimal difficulty. Prep was adequate. Scope was slowly retracted back. No polyps, masses or ulcerations within the cecum, ascending, transverse, descending, and sigmoid colon. Once in the rectum, scope was retroflexed noting no other pathology. Scope was returned to its normal position, slowly withdrawn until completely removed. The patient tolerated the procedure well without any complications. He was taken to the recovery room in stable condition. RECOMMENDATIONS: The patient will need repeat colonoscopy in 10 years unless family history of colon cancer, personal history of colon polyps, which would then be 5 years. Any issues before that be seen at that time. Job ID: [id number] DocumentID: [id number] Dictated Date: 09/06/2021 11:14:48 Rubber Liner Date: 09/06/2021 17:21:54 Dictated By: PAM BUSTOS DO
== END 2021-09-06 11:47 | disposition home or self-care (01) ==
LOC: ENDO 08:41
PROVIDERS: ATTEND Surgery
DX: Z12.11 Encounter for screening for malignant neoplasm of colon (principal); Z79.82 Long term (current) use of aspirin; Z79.4 Long term (current) use of insulin; Z79.02 Long term (current) use of antithrombotics/antiplatelets; E66.9 Obesity, unspecified; Z68.38 Body mass index [BMI] 38.0-38.9, adult

== ENCOUNTER 2022-03-24 14:20 | Outpatient (RCR) | payer MEDICARE, MEDICAID | END 2022-03-24 16:16 | disposition home or self-care (01) | PROVIDERS: ATTEND Nurse Practitioner | DX: M54.16 Radiculopathy, lumbar region (principal); I10 Essential (primary) hypertension; J45.909 Unspecified asthma, uncomplicated ==

== ENCOUNTER → 2022-12-25 | Outpatient (CLI) | payer MEDICARE, MEDICAID ==
[~2022-12-25] MED LIST changes: -GABA-490 PO; +GABA-491 PO; -INSU100I29 SQ; +INSU100I30 SQ; -LOSA100T57 PO; +LOSA100T58 PO
--- NOTE | 2022-12-25 17:24 | Diagnostic Imaging Report ---
CLINICAL HISTORY: Fall. Right rib pain. COMPARISON: 08/19/2014. TECHNIQUE: Three views of the right ribs. FINDINGS: No acute fracture or dislocation of the right ribs. No focal osseous lesions. No pneumothorax or pleural effusion in the right lung. IMPRESSION: 1. No acute displaced right-sided rib fractures. Dictated by: Dictated on workstation # [id number]
== END ==
LOC: RAD 09:46
PROVIDERS: ATTEND Nurse Practitioner Family
DX: R07.81 Pleurodynia (principal)
CPT/HCPCS: 71100

== ENCOUNTER 2023-01-20 18:31 | Emergency (ER) | payer MEDICARE, MEDICAID ==
--- NOTE | 2023-01-20 18:42 | ED Cough/URI ---
General Chief Complaint: Cough/Cold/Flu Symptoms Stated Complaint: COUGH Source: patient Exam Limitations: no limitations History of Present Illness Date Seen by Provider: Jan 20, 2023 Time Seen by Provider: 18:41 Initial Comments Patient is a 67-year-old male who presents to the emergency department with his chief complaint persistent cough over the course of the last week. Patient states that he went to see his primary care provider on Sunday of last week, they recommended supportive care. He has been using Mucinex as well as DayQuil and NyQuil without any relief of symptoms. He states he has not been able to sleep at night due to the cough. He states it is occasionally productive of clear and yellow sputum. He denies any chest pain. He states he is not short of breath. Denies any swelling in his lungs. No sick contacts. They did not test him for COVID. He does not believe he has had any fever but he has been very sweatystates that he is usually quite a sweaty person. Denies nausea and vomiting. No diarrhea. History of diabetes, hypertension and arthritis. Is not on blood thinners. No history of blood clot. Has had a remote stress test. Again no chest pain. Timing/Duration: week, getting worse Severity/Quality: severe, productive cough, sputum, blood streaked sputum Prior Episodes/Possible Cause: unknown cause Modifying Factors: Improves With Albuterol Inhaler Associated Symptoms: cough, nasal drainage, shortness of breath Allergies and Home Medications Allergies Uncoded Allergies: TAPE (Adverse Reaction, Mild, 08/12/10) Patient Home Medication List Home Medication List Reviewed: Yes Albuterol Sulfate (Proair Hfa) 90 Mcg Hfa.aer.ad, 8.5 GM IH PRN, (Reported) Entered as Reported by: NAVA MONSIVAIS on 08/24/21 145 Aspirin (Aspirin) 81 Mg Tab.chew, 81 MG PO DAILY PRN, (Reported) Entered as Reported by: NAVA MONSIVAIS on 08/24/21 145 Cetirizine HCl (Cetirizine HCl) 10 Mg Tablet, 10 MG PO DAILY, (Reported) Entered as Reported by: NAVA MONSIVAIS on 08/24/21 145 Cyclobenzaprine HCl (Cyclobenzaprine HCl) 10 Mg Tablet, 10 MG PO BID, (Reported) Entered as Reported by: ASHKAN DURAN on 08/16/20 144 Doxepin HCl (Doxepin HCl) 10 Mg Capsule, 10 MG PO DAILY, (Reported) Entered as Reported by: NAVA MONSIVAIS on 08/24/21 145 Empagliflozin (Jardiance) 25 Mg Tablet, 25 MG PO DAILY, (Reported) Entered as Reported by: NAVA MONSIVAIS on 08/24/21 145 Fluticasone Propionate (Fluticasone Propionate) 50 Mcg/Actuation [place].susp, 16 GM NS DAILY, (Reported) Entered as Reported by: NAVA MONSIVAIS on 08/24/21 145 Gabapentin (Gabapentin) 400 Mg Capsule, 400 MG PO TID, (Reported) Entered as Reported by: ASHKAN DURAN on 08/16/20 144 Glimepiride (Glimepiride) 4 Mg Tablet, 4 MG PO BID, (Reported) Entered as Reported by: ASHKAN DURAN on 08/16/20 144 Insulin Detemir (Levemir Flextouch) 100 Unit/1 Ml Insuln.pen, 30 UNIT SQ BID, (Reported) Entered as Reported by: ASHKAN DURAN on 08/16/20 144 Liraglutide (Victoza 3-Javier) 0.6 Mg/0.1 Ml Pen.injctr, 1.8 MG SQ DAILY, (Reported) Entered as Reported by: ASHKAN DURAN on 08/16/20 144 Losartan Potassium (Losartan Potassium) 100 Mg Tablet, 100 MG PO DAILY, (Reported) Entered as Reported by: ASHKAN DURAN on 08/16/20 144 Meloxicam (Meloxicam) 15 Mg Tablet, PO DAILY, (Reported) Entered as Reported by: NAVA MONSIVAIS on 08/24/21 145 Metformin HCl (Metformin HCl ER) 500 Mg [id number], 1,000 MG PO BID, (Reported) Entered as Reported by: ASHKAN DURAN on 08/16/20 144 Omeprazole (Omeprazole) 40 Mg Capsule.dr, 40 MG PO DAILY, (Reported) Entered as Reported by: ASHKAN DURAN on 08/16/20 144 Simvastatin (Simvastatin) 20 Mg Tablet, 20 MG PO DAILY, (Reported) Entered as Reported by: NAVA MONSIVAIS on 08/24/21 1451 Trazodone HCl (Trazodone HCl) 100 Mg Tablet, 100 MG PO HS, (Reported) Entered as Reported by: ASHKAN DURAN on 08/16/20 1446 Review of Systems Review of Systems Constitutional: see HPI, diaphoresis EENTM: no symptoms reported Respiratory: cough, phlegm Cardiovascular: no symptoms reported Gastrointestinal: no symptoms reported Genitourinary: no symptoms reported Musculoskeletal: no symptoms reported Skin: no symptoms reported Past Ohhiyaq-Tjilpb-Nfpyzr Hx Immunizations Up To Date First/Initial COVID19 Vaccinat: YES 2019 Second COVID19 Vaccination Ilan: YES 2020 Third COVID19 Vaccination Date: NO Seasonal Allergies Seasonal Allergies: No Past Medical History Surgeries: Yes Appendectomy, Gallbladder, Orthopedic Respiratory: Yes (DOES NOT USE C-PAP) Sleep Apnea Cardiac: Yes Hypertension Neurological: No Genitourinary: No Gastrointestinal: Yes Gastroesophageal Reflux, Gall Bladder Disease Musculoskeletal: Yes Arthritis Endocrine: Yes Hypothyroidsim, Diabetes, Non-Insulin dep HEENT: No Cancer: No Psychosocial: Yes Anxiety Integumentary: No Blood Disorders: No Physical Exam Vital Signs - First Documented 01/20/23 18:40 Temp 36.8 Pulse 71 Resp 18 B/P (MAP) 128/78 (95) Pulse Ox 99 Capillary Refill : Height: 6'2.00" Weight: 284lbs. oz. 128.149635mr; 38.87 BMI Method:Stated General Appearance: WD/WN, mild distress Eyes: Bilateral Eye Normal Inspection, Bilateral Eye PERRL, Bilateral Eye EOMI HEENT: pharynx normal Neck: normal inspection Respiratory: no accessory muscle use, crackles (left base with scattered wheezes) Cardiovascular: regular rate, rhythm, other (2+ radial pulses) Gastrointestinal: non tender, soft, other (obese) Extremities: normal range of motion, no pedal edema, normal capillary refill Neurologic/Psychiatric: no motor/sensory deficits, alert, normal mood/affect, oriented x 3 Skin: damp (clammy), pallor Focused Exam Lactate Level 01/20/23 18:58: Lactic Acid Level 2.28*H Lactic Acid Level Laboratory Tests Test 01/20/23 18:58 Lactic Acid Level 2.28 MMOL/L (0.50-2.00) *H Progress/Results/Core Measures Suspected Sepsis SIRS Temperature: Pulse: Respiratory Rate: Laboratory Tests 01/20/23 18:58: White Blood Count 5.3 Blood Pressure / Mean: 01/20/23 18:58: Lactic Acid Level 2.28*H Laboratory Tests 01/20/23 18:58: Creatinine 0.86, INR Comment 1.1, Platelet Count 132, Total Bilirubin 1.3H Results/Orders Lab Results Laboratory Tests Test 01/20/23 18:41 01/20/23 18:58 Range/Units Influenza Type A (RT-PCR) Not Detected Not Detecte Influenza Type B (RT-PCR) Not Detected Not Detecte SARS-CoV-2 RNA (RT-PCR) Not Detected Not Detecte White Blood Count 5.3 4.3-11.0 10^3/uL Red Blood Count 5.15 4.30-5.52 10^6/uL Hemoglobin 14.9 13.3-17.7 g/dL Hematocrit 47 40-54 % Mean Corpuscular Volume 91 80-99 fL Mean Corpuscular Hemoglobin 29 25-34 pg Mean Corpuscular Hemoglobin Concent 32 32-36 g/dL Red Cell Distribution Width 12.2 10.0-14.5 % Platelet Count 132 130-400 10^3/uL Mean Platelet Volume 10.1 9.0-12.2 fL Immature Granulocyte % (Auto) 0 % Neutrophils (%) (Auto) 61 42-75 % Lymphocytes (%) (Auto) 25 12-44 % Monocytes (%) (Auto) 9 0-12 % Eosinophils (%) (Auto) 5 0-10 % Basophils (%) (Auto) 1 0-10 % Neutrophils # (Auto) 3.2 1.8-7.8 10^3/uL Lymphocytes # (Auto) 1.3 1.0-4.0 10^3/uL Monocytes # (Auto) 0.5 0.0-1.0 10^3/uL Eosinophils # (Auto) 0.3 0.0-0.3 10^3/uL Basophils # (Auto) 0.0 0.0-0.1 10^3/uL Immature Granulocyte # (Auto) 0.0 0.0-0.1 10^3/uL Percent Immature Platelet Fraction 3.0 0.0-7.6 % Prothrombin Time 14.2 12.2-14.7 SEC INR Comment 1.1 0.8-1.4 Activated Partial Thromboplast Time 27 24-35 SEC Sodium Level 138 135-145 MMOL/L Potassium Level 3.8 3.6-5.0 MMOL/L Chloride Level 106 98-107 MMOL/L Carbon Dioxide Level 23 21-32 MMOL/L Anion Gap 9 5-14 MMOL/L Blood Urea Nitrogen 11 7-18 MG/DL Creatinine 0.86 0.60-1.30 MG/DL Estimat Glomerular Filtration Rate 95 BUN/Creatinine Ratio 13 Glucose Level 275 H 70-105 MG/DL Lactic Acid Level 2.28 *H 0.50-2.00 MMOL/L Calcium Level 8.8 8.5-10.1 MG/DL Corrected Calcium 8.7 8.5-10.1 MG/DL Total Bilirubin 1.3 H 0.1-1.0 MG/DL Aspartate Amino Transf (AST/SGOT) 20 5-34 U/L Alanine Aminotransferase (ALT/SGPT) 19 0-55 U/L Alkaline Phosphatase 84 40-136 U/L Troponin I < 0.028 <0.028 NG/ML B-Type Natriuretic Peptide 99.0 <100.0 PG/ML Total Protein 6.8 6.4-8.2 GM/DL Albumin 4.1 3.2-4.5 GM/DL My Orders Orders - FRANCISCO SÁNCHEZ MD Cbc And Automated Diff (01/20/23 18:48) Comprehensive Metabolic Panel (01/20/23 18:48) Blood Culture (01/20/23 18:48) Sputum Culture (01/20/23 18:48) Urinalysis (01/20/23 18:48) Urine Culture (01/20/23 18:48) Protime With Inr (01/20/23 18:48) Partial Thromboplastin Time (01/20/23 18:48) Chest 1 View, Ap/Pa Only (01/20/23 18:48) Ed Iv/Invasive Line Start (01/20/23 18:48) Ed Iv/Invasive Line Start (01/20/23 18:48) Vital Signs Adult Sepsis Patie Q15M (01/20/23 18:48) O2 (01/20/23 18:48) Remove Rings In Anticipation O (01/20/23 18:48) Lactic Acid Analyzer (01/20/23 18:48) Covid 19 Inhouse Test (01/20/23 18:48) Ekg Tracing (01/20/23 18:48) Influenza A And B By Pcr (01/20/23 18:48) Ceftriaxone Iv/Im (Ceftriaxone Iv/Im) (01/20/23 19:30) Azithromycin Injection (Azithromycin Inj (01/20/23 19:30) Troponin I Sara (01/20/23 20:07) Bnp [place] (01/20/23 20:07) Medications Given in ED Current Medications Medications Dose Ordered Sig/[place] Route Start Time Stop Time Status Last Admin Dose Admin Azithromycin 500 mg/Sodium Chloride 250 ml @ 250 mls/hr ONCE ONCE IV 01/20/23 19:30 01/20/23 20:29 DC 01/20/23 19:30 250 MLS/HR Ceftriaxone Sodium 1000 mg/ Sodium Chloride 50 ml @ 100 mls/hr ONCE ONCE IV 01/20/23 19:30 01/20/23 19:59 DC 01/20/23 19:29 100 MLS/HR Vital Signs/I&O 01/20/23 18:40 Temp 36.8 Pulse 71 Resp 18 B/P (MAP) 128/78 (95) Pulse Ox 99 Capillary Refill : Progress Note #1: Time: 20:09 Progress Note Patient chest x-ray reviewed at this time, radiologist questions positive fluid balance, congestive failure. Adding troponin, BNP at this time. Progress Note #2: Time: 20:47 Progress Note Patient seen and examined by me. Evaluation today includes history and physical exam, "septic work-up" to include CBC, Chem-12, coags, single view chest x-ray, EKG, blood cultures, lactic acid, BNP, troponin, covid/flu test. n. Pertinent physical exam findings well-developed well-nourished mildly obese male in no acute distress. His vital signs are stable, room air sats 95%. He is not febrile or hypotensive. He has crackles and expiratory wheezes in the left base. No respiratory distress or increased work of breathing. His heart is regular, abdomen is soft nontender. He has no lower extremity edema or calf tenderness. Differential diagnosis includes pneumonia/sepsis, pulmonary embolism, congestive heart failure/ACS, bronchitis Patient's labs, EKG and chest x-ray independently reviewed and interpreted by me. His CBC is normal, normal white count. Chem-12 pertinent for only elevated glucose at 275. His lactic acid is elevated at 2.28. Coags are within normal limits. COVID and flu testing are negative. Added troponin is undetectable at 0.028, BNP is 99. His chest x-ray shows patchy right perihilar infiltrate and left basilar infiltrate. Patient is treated in the emergency department with a liter of normal saline which will address his mild lactic acidosis. No findings concerning at this time for sepsis. Objective findings concerning for pulmonary embolism, he is not hypoxic, not tachycardic, no leg swelling or calf tenderness. He has had no chest pain. His BNP is low basically ruling out congestive heart failure and he has no lower extremity edema. Troponin is also negative ruling out ACS. He has no patient is treated with a gram of Rocephin as well as 500 mg of azithromycin for community-acquired pneumonia. My plan is to start him on cefdinir and azithromycin. We will add some Tessalon Perles for the cough. He is taking Mucinex at home. He can also take [id number]-[id number] Delsym for cough. This will be written on his discharge papers. I have communicated this verbally to the patient as well. Return precautions provided. Advised him that he should follow-up with his primary care physician mid-to-late next week. He verbalized understanding. All questions are sought and answered. Patient is stable for discharge. ECG Initial ECG Impression Date: Jan 20, 2023 Initial ECG Impression Time: 18:52 Initial ECG Rate: 70 Initial ECG Rhythm: Normal Sinus Initial ECG Intervals APR 195 QRS 161 QTc 438 Comment Right bundle branch block noted, EKG appears identical to one as far back as 2014. No ectopy is noted. Diagnostic Imaging Diagonstic Imaging: Xray Plain Films/CT/US/NM/MRI: chest Comments [facility], [place] NAME: [facility] REC#: [id number] PT STATUS: REG ER : 1955 PHYSICIAN: FRANCICSO SÁNCHEZ MD ADMIT DATE: 01/20/23/ER Signed Date of Exam:01/20/23 CHEST 1 VIEW, AP/PA ONLY INDICATION: Cough. COMPARISON: 08/19/2014. FINDINGS: Single view chest shows the cardiac contour to be borderline enlarged. There is central venous congestion. There are also perihilar infiltrates and patchy infiltrates, bilaterally. No confluent consolidation is seen. There is no effusion or pneumothorax. Film is underpenetrated IMPRESSION: Borderline cardiomegaly with moderate congestive heart failure. There are some perihilar infiltrate. Departmental PA and lateral films of the chest are recommended to better assess these findings. Dictated by: Dictated on workstation # [id number] Dict: 01/20/231912 Trans: 01/20/231929 PJE [id number] Interpreted by: EMPERATRIZ BAKER MD Electronically signed by: EMPERATRIZ BAKER MD 01/20/231929 Departure Impression Primary Impression: Community acquired pneumonia Qualified Codes: J18.9 - Pneumonia, unspecified organism Disposition: HOME, SELF-CARE Condition: Improved Departure-Patient Inst. Decision time for Depature: 20:52 Referrals: KEVIN DOUGHERTY DO (PCP/Family) Primary Care Physician Patient Instructions: Community-acquired pneumonia in adults Add. Discharge Instructions: Continue to take the DayQuil and NyQuil and Mucinex for congestion. You can also take [id number] DELSYM which you can get at [facility]. Please follow package instructions. This medication is very good for cough. Use your inhaler 2 puffs every 6 hours for cough/wheezing. I have prescribed some Tessalon Perles, 1 tablet every 8 hours as needed for cough. You have been given a prescription for 2 separate antibiotics. You will take azithromycin 500 mg once a day tomorrow and Sunday. Cefdinir antibiotic 300 mg twice a day for 7 days starting tomorrow evening. Please call Dr. DOUGHERTY's office on Sunday morning for a follow-up appointment late next week. Return to the emergency department for increased cough especially with fever over 101, shortness of breath, chest pain or any other emergent, concerning symptoms. Scripts Benzonatate (TESSALON PERLES) 100 Mg Capsule 100 MG PO TID PRN for cough, #20 CAP Prov: FRANCISCO SÁNCHEZ MD 01/20/23 Cefdinir (Cefdinir) 300 Mg Capsule 300 MG PO BID for 7 Days, #14 CAP Prov: FRANCISCO SÁNCHEZ MD 01/20/23 Azithromycin (Azithromycin) 250 Mg Tablet 250 MG PO DAILY, #4 TAB 0 Refills Prov: FRANCISCO SÁNCHEZ MD 01/20/23 Copy Copies To 1: KEVIN DOUGHERTY KATHRYN M MD Jan 20, 2023 18:41
[2023-01-20 19:09] LABS: BASOPHILS % (AUTO) 1 % (0-10)
[2023-01-20 19:10] LABS: EOSINOPHILS # (AUTO) 0.3 10^3/uL (0.0-0.3); EOSINOPHILS % (AUTO) 5 % (0-10); HEMATOCRIT 47 % (40-54); HEMOGLOBIN 14.9 g/dL (13.3-17.7); LYMPHOCYTES # (AUTO) 1.3 10^3/uL (1.0-4.0); LYMPHOCYTES % (AUTO) 25 % (12-44); MEAN CORPUSCULAR HEMOGLOBIN 29 pg (25-34); MEAN CORPUSCULAR HGB CONC 32 g/dL (32-36); MEAN CORPUSCULAR VOLUME 91 fL (80-99); MEAN PLATELET VOLUME 10.1 fL (9.0-12.2); MONOCYTES # (AUTO) 0.5 10^3/uL (0.0-1.0); MONOCYTES % (AUTO) 9 % (0-12); NEUTROPHILS # (AUTO) 3.2 10^3/uL (1.8-7.8); NEUTROPHILS % (AUTO) 61 % (42-75); PLATELET COUNT 132 10^3/uL (130-400); WHITE BLOOD COUNT 5.3 10^3/uL (4.3-11.0)
[2023-01-20 19:22] LABS: INR 1.1 (0.8-1.4); PROTHROMBIN TIME PATIENT 14.2 SEC (12.2-14.7)
--- NOTE | 2023-01-20 19:22 | Diagnostic Imaging Report ---
INDICATION: Cough. COMPARISON: 08/19/2014. FINDINGS: Single view chest shows the cardiac contour to be borderline enlarged. There is central venous congestion. There are also perihilar infiltrates and patchy infiltrates, bilaterally. No confluent consolidation is seen. There is no effusion or pneumothorax. Film is underpenetrated IMPRESSION: Borderline cardiomegaly with moderate congestive heart failure. There are some perihilar infiltrate. Departmental PA and lateral films of the chest are recommended to better assess these findings. Dictated by: Dictated on workstation # [id number]
[2023-01-20 19:26] LABS: ALBUMIN 4.1 GM/DL (3.2-4.5); POTASSIUM 3.8 MMOL/L (3.6-5.0)
[2023-01-20 19:28] LABS: CALCIUM 8.8 MG/DL (8.5-10.1)
[2023-01-20 19:29] LABS: TOTAL PROTEIN 6.8 GM/DL (6.4-8.2)
[2023-01-20] MEDS ORDERED: cefTRIAXone IV/IM 1,000 MG in NS (IVPB) 50 ML 50 ML IV ONE (19:30)
[2023-01-20] MEDS ORDERED: AZITHROMYCIN INJECTION 500 MG in NS (IVPB) 250 ML 250 ML IV ONE (19:30)
[2023-01-20 19:31] LABS: BILIRUBIN,TOTAL 1.3 MG/DL (0.1-1.0)
[2023-01-20 19:32] LABS: CREATININE SERUM 0.86 MG/DL (0.60-1.30)
[2023-01-20] MEDS ORDERED: AZIT250T12 PO (20:55)
[2023-01-20] MEDS ORDERED: BENZ100C18 PO (20:55)
[2023-01-20] MEDS ORDERED: CEFD300C3 PO (20:55)
[2023-01-20 21:02] VITALS: BP 129/99
[2023-01-20 21:33] LABS: CLARITY,URINE CLEAR; COLOR,URINE YELLOW; PH,URINE 5.5 (5-9)
[2023-01-20 21:34] LABS: BACTERIA,URINE NEGATIVE /HPF; BILIRUBIN,URINE NEGATIVE (NEGATIVE); GLUCOSE, URINE (UA) 3+ (NEGATIVE); KETONES,URINE NEGATIVE (NEGATIVE); LEUKOCYTE ESTERASE ,URINE NEGATIVE (NEGATIVE); NITRITE,URINE NEGATIVE (NEGATIVE); PROTEIN,URINE NEGATIVE (NEGATIVE)
== END 2023-01-20 21:05 | disposition home or self-care (01) ==
LOC: EDUNIT# 18:31 → ER 18:34
DX: J18.9 Pneumonia, unspecified organism (principal)
CPT/HCPCS: 36415; 71045; 80053; 81000; 83605; 83880; 84484; 85025; 85610; 85730; 87040; 87088; 87636; 93005; 96365; 96375